=== PATIENT | female | born 1930 | race Caucasian/White ===

== ENCOUNTER 2016-07-13 18:24 | Inpatient (IN) | payer MEDICARE, BC ==
[~2016-07-13 18:24] MED LIST: ANTIVERT25 MG PO; ASPIR 8181 M1 PO; ATARAX10 MG PO; AZELASTINE137 MCG/01; CALCIUM 600 W/V1 TAB; CALCIUM600 MG PO; CALTRATE 600+D1 EAC1 PO; CHLORASEPTIC LO1 LOZ MM; FISH OIL300 M1 PO; FLONASE16 GM; FLONASE16 GM NS; HALFPRIN162 MG PO; HYDROCHLOROTHIA25 MG; HYDROCHLOROTHIA25 MG PO; HYDROXYZINE HCL10 MG; ICAPS PLUS; ICAPS TABLET1 EACH PO; ICAPS TABLET1 TAB.S PO; LESCOL XL80 MG; LISINOPRIL10 MG PO; LYRICA100 MG/CAP PO; METAMUCIL; MIRALAX255 GM PO; MUCINEX600 M1 PO; MUCINEX600 MG; MUCINEX600 MG PO; MULTIVITAMIN1 TAB PO; MURO-12815 ML; MURO-1283.5 GM; NIACIN100 MG PO; NIACIN50 PO; NORCO 7.5/3251 TAB PO; OMEPRAZOLE40 M2 PO; PLAVIX75 MG PO; PRAVACHOL40 MG; PRAVASTATIN SOD40 M1 PO; PRAVASTATIN SOD40 MG PO; PREMARIN VAG CR45 GM OTHER; PREMARIN0.3 MG; PREMARIN0.3 MG PO; PREMARIN45 GM; PRINIVIL5 M1 PO; RANITIDINE HCL150 M3 PO; RANITIDINE HCL150 MG; SENOKOT8.6 MG PO; TYLENOL325 MG PO; VITAMIN A8000 UNIT PO; VITAMIN B6; VITAMIN C PO; VITAMIN C100 MG; ZANTAC15 PO
[2016-07-13 18:55] LABS: BASO % 0.2 % (0-2); EOS % 0.5 % (0-7); EOSINOPHIL ABSOLUTE COUNT 0.1 tho/cmm (0.0-0.7); HCT-HEMATOCRIT 34.2 % (34.0-49.0); HGB-HEMOGLOBIN 11.5 gm/dl (12.0-15.5); IMMATURE GRANULOCYTES ABSOLUTE 0.02 tho/cmm (0-0.03); IMMATURE GRANULOCYTES PERCENT 0.2 % (0-0.3); LYMPH % 9.9 % (20-45); MCH (MEAN CORPUSCULAR HGB) 30.1 pg (28.0-32.0); MCHC MEAN CORPUSCULAR HGB CONC 33.6 % (32.0-36.0); MCV (MEAN CELL VOLUME) 89.5 fl (82.0-96.0); MEAN PLATELET VOLUME 9.4 cmc (9.4-12.4); MONO % 6.3 % (0-12); MONOCYTE ABSOLUTE COUNT 0.7 tho/cmm (0.0-1.2); NEUTROPHIL ABSOLUTE COUNT 8.8 tho/cmm (1.6-8.0); NEUTROPHIL-AUTOMATED 8.8 tho/cmm (1.6-8.0); NEUTROPHILS % 82.9 % (40-80); PLATELET COUNT 203 tho/cmm (150-450); RED BLOOD COUNT 3.82 mil/cmm (4.00-5.20); RED CELL DISTRIBUTION WIDTH 14.2 % (12.4-16.4); WHITE BLOOD COUNT 10.5 tho/cmm (4.0-10.0)
[2016-07-13 19:03] LABS: INR 1.1 INR (0.9-1.1); PROTHROMBIN TIME 12.4 SECONDS (9.0-13.6)
[2016-07-13 19:17] LABS: ALB/GLOB RATIO 0.8 (0.8-2.0); ALBUMIN 3.3 g/dl (3.5-5.0); ALKALINE PHOSPHATASE 68 U/L (33-138); ALT/SGPT 15 U/L (12-78); ANION GAP 11 mmol/L (0-20); AST/SGOT 32 U/L (10-40); BILIRUBIN,TOTAL 0.3 mg/dl (0-1.5); BLOOD UREA NITROGEN 23 mg/dl (6-24); CALCIUM 8.6 mg/dl (8.5-10.5); CARBON DIOXIDE-VENOUS 26 mmol/L (22-32); CHLORIDE 104 mmol/l (96-110); CREATININE 1.31 mg/dl (0.50-1.10); GLUCOSE 125 mg/dL (70-110); POTASSIUM 4.6 mmol/L (3.7-5.1); SODIUM 136 mmol/L (135-145); eGFR VALUE FOR BLACK 42 mL/Min
[2016-07-13] MEDS ORDERED: LINZESS145 MC1 PO (19:21)
[2016-07-13 19:29] LABS: PROCALCITONIN <0.05 ng/ml (0.05-0.09)
[2016-07-13] MEDS ORDERED: COLACE100 M1 PO (19:31)
[2016-07-13] MEDS ORDERED: SENNA LAX8.6 M2 PO (19:31)
[2016-07-13] MEDS ORDERED: ARTIFICIAL TEAR15 M8 OP (19:33)
[2016-07-14 05:02] LABS: BASO % 0.1 % (0-2); HGB-HEMOGLOBIN 11.2 gm/dl (12.0-15.5); IMMATURE GRANULOCYTES ABSOLUTE 0.02 tho/cmm (0-0.03); IMMATURE GRANULOCYTES PERCENT 0.2 % (0-0.3); LYMPH ABSOLUTE COUNT 0.8 tho/cmm (0.8-4.5); MCH (MEAN CORPUSCULAR HGB) 29.8 pg (28.0-32.0); MCHC MEAN CORPUSCULAR HGB CONC 32.9 % (32.0-36.0); MCV (MEAN CELL VOLUME) 90.4 fl (82.0-96.0); MEAN PLATELET VOLUME 9.4 cmc (9.4-12.4); MONO % 1.6 % (0-12); MONOCYTE ABSOLUTE COUNT 0.1 tho/cmm (0.0-1.2); NEUTROPHIL ABSOLUTE COUNT 7.6 tho/cmm (1.6-8.0); NEUTROPHIL-AUTOMATED 7.6 tho/cmm (1.6-8.0); NEUTROPHILS % 89.1 % (40-80); PLATELET COUNT 180 tho/cmm (150-450); RED BLOOD COUNT 3.76 mil/cmm (4.00-5.20); RED CELL DISTRIBUTION WIDTH 14.2 % (12.4-16.4); WHITE BLOOD COUNT 8.5 tho/cmm (4.0-10.0)
[2016-07-14 05:28] LABS: ANION GAP 15 mmol/L (0-20); BLOOD UREA NITROGEN 17 mg/dl (6-24); CALCIUM 8.2 mg/dl (8.5-10.5); CARBON DIOXIDE-VENOUS 24 mmol/L (22-32); CHLORIDE 111 mmol/l (96-110); CREATININE 1.16 mg/dl (0.50-1.10); GLUCOSE 181 mg/dL (70-110); POTASSIUM 4.5 mmol/L (3.7-5.1); SODIUM 145 mmol/L (135-145); eGFR VALUE FOR BLACK 49 mL/Min
--- NOTE | 2016-07-14 20:06 | NUR ---
VIRTUAL CARE NOTE: ASSESSMENT DEFERRED. PT. SLEEPING.
--- NOTE | 2016-07-15 20:35 | NUR ---
VIRTUAL CARE NOTE: ASSESSMENT DEFERRED. PT SLEEPING. WILL CONTINUE WITH CHART REVIEW.
[2016-07-16 05:58] LABS: BASO % 0.1 % (0-2); HCT-HEMATOCRIT 30.1 % (34.0-49.0); HGB-HEMOGLOBIN 10.2 gm/dl (12.0-15.5); IMMATURE GRANULOCYTES ABSOLUTE 0.29 tho/cmm (0-0.03); IMMATURE GRANULOCYTES PERCENT 1.4 % (0-0.3); LYMPH % 4.6 % (20-45); MCH (MEAN CORPUSCULAR HGB) 30.2 pg (28.0-32.0); MCHC MEAN CORPUSCULAR HGB CONC 33.9 % (32.0-36.0); MCV (MEAN CELL VOLUME) 89.1 fl (82.0-96.0); MEAN PLATELET VOLUME 9.7 cmc (9.4-12.4); MONO % 2.8 % (0-12); MONOCYTE ABSOLUTE COUNT 0.6 tho/cmm (0.0-1.2); NEUTROPHIL ABSOLUTE COUNT 18.8 tho/cmm (1.6-8.0); NEUTROPHIL-AUTOMATED 18.8 tho/cmm (1.6-8.0); NEUTROPHILS % 91.1 % (40-80); PLATELET COUNT 212 tho/cmm (150-450); RED BLOOD COUNT 3.38 mil/cmm (4.00-5.20); RED CELL DISTRIBUTION WIDTH 14.8 % (12.4-16.4); WHITE BLOOD COUNT 20.7 tho/cmm (4.0-10.0)
[2016-07-16 06:10] LABS: ANION GAP 11 mmol/L (0-20); BLOOD UREA NITROGEN 24 mg/dl (6-24); CALCIUM 7.8 mg/dl (8.5-10.5); CARBON DIOXIDE-VENOUS 24 mmol/L (22-32); CHLORIDE 115 mmol/l (96-110); CREATININE 1.06 mg/dl (0.50-1.10); GLUCOSE 135 mg/dL (70-110); MAGNESIUM 2.2 mg/dl (1.8-2.6); SODIUM 146 mmol/L (135-145); eGFR VALUE FOR BLACK 54 mL/Min
--- NOTE | 2016-07-16 14:35 | NUR ---
VN ROUNDING DEFERRED PATIENT SLEEPING-CONTINUED WITH CHART REVIEW. PLAN TO DC HOPEFULLY IN 1-2 DAYS IF PREDNISONE IS TOLERATED
[2016-07-17] MEDS ORDERED: LEVAQUIN750 M1 PO ×2 (12:20→12:38)
[2016-07-17] MEDS ORDERED: IPRAT-ALBUT 0.5-3 ML INH ×3 (12:23→12:39)
[2016-07-17] MEDS ORDERED: NORVASC10 M2 PO (12:28)
[2016-07-17] MEDS ORDERED: TESSALON PERLE100 M1 PO (12:30)
[2016-07-17] MEDS ORDERED: DELTASONE20 MG PO (12:33)
== END 2016-07-17 16:55 | DRG 871 ==
LOC: EDMED 18:24 → EMR2 20:46 → 5WD 22:01
PROVIDERS: Emergency Medicine; Internal Medicine; ADMIT Hospitalist
DX: A41.9 Sepsis, unspecified organism (principal); J12.3 Human metapneumovirus pneumonia; J96.01 Acute respiratory failure with hypoxia; R65.20 Severe sepsis without septic shock; I10 Essential (primary) hypertension; S39.011A Strain of muscle, fascia and tendon of abdomen, initial encounter; T38.0X5A Adverse effect of glucocorticoids and synthetic analogues, initial encounter; Z88.0 Allergy status to penicillin; Z88.1 Allergy status to other antibiotic agents; Z91.040 Latex allergy status; E78.5 Hyperlipidemia, unspecified; Z86.73 Personal history of transient ischemic attack (TIA), and cerebral infarction without residual deficits; Z79.82 Long term (current) use of aspirin; Z66 Do not resuscitate; F43.20 Adjustment disorder, unspecified
CPT/HCPCS: G8978-GP-CK; G8979-GP-CJ; G8979-GP-CK; G8980-GP-CJ; J1650; J1956; J2920; J2930; J7030; J7512